=== PATIENT | male | born 2000 | race African-American/Black ===

== ENCOUNTER 2024-05-27 16:10 | Emergency (ER) | payer SELFPAY ==
[~2024-05-27] VITALS: Ht 167.6 cm; Wt 65.0 kg
[2024-05-27 16:12] VITALS: BP 125/93; PULSE 85; RESP 18; TEMP 98; O2SAT 98
== END 2024-05-27 17:31 | disposition left against medical advice (07) ==
LOC: ER 16:10
DX: F41.9 Anxiety disorder, unspecified (principal); Z53.21 Procedure and treatment not carried out due to patient leaving prior to being seen by health care provider